=== PATIENT | male | born 1965 | race Caucasian/White ===

== ENCOUNTER → 2019-02-05 14:39 | Outpatient (CLI) | payer OTHER, SELFPAY ==
--- NOTE | 2019-02-05 14:43 | RAD_ITS ---
STUDY: X-RAY - RIGHT ELBOW REASON FOR EXAM: Male, 53 years old. Possible foreign body. TECHNIQUE: 3 view(s) of the elbow. COMPARISON: None. FINDINGS: Normal visualized humerus, radius and ulna. Normal radiocapitellar and ulnotrochlear articulations. There is a fine linear metallic density in the anterior soft tissues on the radial aspect overlying the mid humerus RAD/Elbow min 3 Views IMPRESSION: Fine linear metallic density in the anterior radial aspect of the right arm overlying the midportion of the right humerus. Electronically Signed: Santos Downs, at 15:00 EDT , Service support ,
== END ==
PROVIDERS: Referring Provider Surgery; Visit Provider Surgery
DX: M79.5 Residual foreign body in soft tissue (principal)
CPT/HCPCS: 73080

== ENCOUNTER 2019-02-06 10:16 | Day surgery (SDC) | payer OTHER, SELFPAY ==
[2019-02-06 10:58] VITALS: BP 120/72; PULSE 50; RESP 14; TEMP 36.9; O2SAT 100; BMI 25.4
--- NOTE | 2019-02-06 11:29 | PCM.HP.BLA ---
History and Physical Date of Admission: 02/06/19 [facility] [address] [place], [place] [address] OFFICE VISIT Date of Service: 02/05/19 MR#: [id number] Acct: [id number] Name: WINIFRED HENRIQUEZ Rep #: [id number] : 1965 Provider: Jeremie Yeager MD Age/Sex: 53/M Location: [facility] Status: Signed Intake Vital Signs 02/05/19 Height 5 ft 11 in 02/05/19 Weight: 176 lb 02/05/19 Body Mass Index (BMI) 24.5 02/05/19 Blood Pressure 121/71 H 02/05/19 Blood Pressure Location Rt brachial 02/05/19 Blood Pressure Position Sitting 02/05/19 Respiratory Rate 16 02/05/19 Pulse Rate 60 02/05/19 Pulse Source Monitor 02/05/19 Temperature 97.9 F 02/05/19 Temperature Source Oral 02/05/19 Pulse Ox 96 02/05/19 Oxygen Delivery Method room air Intake Visit Reasons: FB arm--metal, xray prior to appt Physicist Astrophysics Required: No Is patient in pain?: No (Right upper arm tenderness) Allergies No Known Allergies Allergy (Verified 02/05/19 15:33) Medications NK 02/05/19 [History Confirmed 02/05/19] PFSH Medical History Foreign body entering through skin (Acute) Surgical History hx of arm exploration (Acute) Family History Mother Hypertension Brother Hypertension Father Hypertension Brother Hypertension Sister Hypertension Social History (Updated 02/05/19 @ 15:34 by Jeremie Yeager MD) Smoking Status: Never smoker second hand exposure: No alcohol intake: never substance use type: does not use caffeine: Yes what type of physical activity do you participate in: weight training frequency: 1-2 times per week seatbelt use: always HPI HPI HPI: WINIFRED HENRIQUEZ is a 53 M who presents to the office today for HPI HPI Surgical H&P: Yes HPI: WINIFRED PELLSHAW, is a 53 M who presents to the office today for Evaluation of a foreign body in his right arm. 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 He was seen by another physician who tried to remove this in the office however the patient is still is experiencing significant amounts of discomfort and he presented to me in the office today with an x-ray that shows a fine linear metallic density in the anterior radial aspect of the right arm overlying the midportion of the right humerus. ROS General General: No weight change, appetite, fatigue, colon cancer, breast cancer or weakness HEENT HEENT: No difficulty swallowing, eye injury, eye surgery, swollen glands or hoarseness Endo Endocrine: No thyroid disease, diabetes mellitus, thyroid cancer, Hair loss, heat intolerance or cold intolerance Skin Skin: No rash or changing moles Musc Musculoskeletal: No back problems, arthritis, rheumatoid arthritis, gout or joint pain Cardio Cardiovascular: No murmur, pacemaker, heart disease, atrial fibrillation, high blood pressure, heart attack, heart stent, palpitations, shortness of breat with exertion or chest pain Psych Psychiatric: No depression, anxiety or hearing voices Resp Respiratory: No shortness of breath, No sleep apnea, No cough, No COPD, No asthma, No emphysema, No wheezing Gastro Gastrointestinal: No abdominal pain, No nausea or vomiting, No diarrhea, No constipation, No blood in stool, No acid reflux, No hemorrhoids, No ulcers, No gallbladder problem, No black,tarry stools Rj Hematologic: No blood thinners, No blood disorders, No bleeding, No anemia, No blood clots Neuro Neurologic: No system reviewed and no additional complaints, except as docu, No as per HPI, No abnormal walking, No abnormal hearing, No abnormal movements, No abnormal speech, No behavioral changes, No burning sensations, No confusion, No seizure-like activity, No unsteadiness, No dizziness, No localized weakness, No frequent falls, No headache(s), No lack of coordination, No loss of vision, No memory loss, No numbness, No other visual disturbances, No radiating pain, No restless legs, No sensory deficit, No fainting, No tingling, No tremor(s), No weakness, No other Exam Const General: no acute distress, well developed, well hydrated Orientation: oriented to person, oriented to place, oriented to time [facility] Head: normocephalic, atraumatic Ears: external ears normal Mouth: moist mucous membranes Eyes Sclera: sclerae normal Pupils: normal by confrontation Neck Neck: no lymphadenopathy noted Neck mass: No Thyroid: thyroid normal, symmetrical Chest Chest palpation & inspection: normal inspection of the chest Resp Effort & Inspection: normal respiratory effort Auscultation: clear to auscultation bilaterally Percussion: percussion normal Cardio Rate: regular rate Rhythm: regular rhythm Heart Sounds: no murmurs GI Palpation: soft, no hepatosplenomegaly, no masses, nontender Rectal Exam: other Other: Rectal exam deferred. Extrem General: normal to inspection, no clubbing, cyanosis or edema Other: Palpation of the midportion of the anterior radial aspect of the right arm I cannot feel this lesion. I used my ultrasound machine and nothing shadowed and so I do not think that there is any way I can possibly do any procedures in the office to remove this Assessment & Plan Problems 1. Foreign body in right upper extremity, initial encounter S40.902P Plan My plan is to do an exploration under fluoroscopy of his right arm. Hopefully by using fluoroscopy we should be able to identify this. Risk benefits to include bleeding infection possible injury to underlying structures and/or nerves. Patient also understands there is a possibility In which I might not be able to find this foreign body. He understands the risk and he is willing to proceed. Orders Orders: Elbow min 3 Views Today M79.5 Coding Level of Care Code Off vis,new,level 3 Diagnoses Foreign body in right upper extremity, initial encounter S40.363P ??Encounter type: initial encounter 02/05/19 1534 <Electronically signed by Jeremie Yeager MD> Date Jeremie Yeager MD Cosigner Signature: Date (if applicable) CC: ~ I have re-examined the patient. There are no clinical changes since date of exam.
[2019-02-06] MEDS: Lactated Ringers 1,000 ML 100 ML IV (11:31)
[2019-02-06] MEDS: Cefazolin 2 GM in 0.9% Normal Saline 100 ML IV (12:22)
--- NOTE | 2019-02-06 12:27 | PCM.OPRPT ---
Problem List (1) Foreign body in right upper extremity Status: Acute Qualifiers: Encounter type: subsequent encounter Qualified Code(s): S40.851D - Superficial foreign body of right upper arm, subsequent encounter Report of Operation Date of Procedure: 02/06/19 Pre-Operative Diagnosis: Foreign body of right upper extremity Post-Operative Diagnosis: Same Surgery/Procedure Performed:: Removal of foreign body to right upper extremity Type of Anesthesia:: Local Estimated Blood Loss (mL): < 5 cc Description of Procedure: Patient was brought into the operating room. His right upper arm was sterilely prepped and draped in usual fashion. Fluoroscopy was used to get an approximate area of where the middle shard was located. I injected local. I made an incision. I dissected down deep into his biopsy and using fluoroscopy I was able to grasp the metal wire and remove it in its entirety from his biceps. Wound was irrigated 3-0 Vicryl deep dermal sutures were placed 2 interrupted sutures of 5-0 nylon were placed sterile dressings were applied and the patient tolerated the procedure well - Admit VTE Documentation VTE Present on Admission: No VTE Mechan Device Prophylaxis: SCD's VTE Pharm Prophylaxis ordered?: No Reason prophylaxis not ordered:: Treatment Not Indicated
--- NOTE | 2019-02-06 12:29 | DCINST_ITS ---
Discharge Diet: Light diet - advance as tolerated - If you have questions about your diet instructions, please talk to your doctor. Discharge Activity: May Drive May shower in (days): 1 Lifting Restrictions: 10 pounds Call your doctor if your incision/area has: Continuous Slow Oozing, Sudden Increased Bleeding, Increased Pain/ Swelling, Increased Redness, Foul Smelling Discharge Call your doctor if you observe: Fever of 101 or Higher Suture Line Care: Avoid Pulling/Pushing, Avoid Pinching/Bending Additional Dressing/Incision Instructions:: Change or remove dressing in 4 days. Leave steri-strips in place for 1 week. Allergies/Adverse Reactions: Allergies No Known Allergies Allergy (Verified 02/06/19 10:57) Medications to take at Discharge NK 02/05/19 Primary Care Physician: Care Physician,No Primary [Primary Care Provider] - Test Results: Test results from this visit will be discussed in further detail at your follow- up appointment, if applicable. Please Follow Up With: Jeremie Yeager MD - [phone] When: Call to make an appointment to be seen in about 10 days.
--- NOTE | 2019-02-06 12:30 | FORE_PTH ---
PATIENT: WINIFRED HENRIQUEZ [place] [facility] [place]#:[id number] AGE/SX: 53/M ROOM: RE02/06/[address]: Dr. Jeremie Yeager MD : 1965 BED: DIS: 02/06/2019 SPEC #: [id number] RECD: 02/09/19 07:25 STATUS: JAMES JACKIE #: [id number] TOOTIE: 02/06/19 12:[address]: Jeremie Yeager DEPT: SURGICAL PATHOLOGY RECD BY: Francisco Espinal ENTERED: 02/09/19 08:47 SP TYPE: FOREIGN B MYRNA DR: No Primary Care Phys Tissues: FOREIGN BODY Procedures: Surgery Specimen Level I HEADER OPERATION: Removal, foreign body right upper arm PRE-OP DIAGNOSIS: Foreign body in right upper extremity, initial encounter S40.851A TISSUE SUBMITTED: Foreign body from right upper arm GROSS DIAGNOSIS A metallic wire for gross only. SJ:debora 02/09/19 GROSS DESCRIPTION Received in fixative is one container labeled with the patient's name and designated foreign body right upper arm. The specimen consists of a metallic wire with wavy appearance measuring 2.2 cm in length and <0.1 cm in diameter. The specimen is for gross identification only. / LYLY:debora 02/09/19 CPT: 29996
[2019-02-06 13:14] VITALS: BP 108/71; BP 120/72; PULSE 50; RESP 16; TEMP 36.7; O2SAT 100
== END 2019-02-06 13:17 | disposition home or self-care (01) ==
LOC: SDC 10:18 → AC 10:19
PROVIDERS: Referring Provider Surgery; Visit Provider Surgery
PROC: (CPT 24201; principal; 2019-02-06 12:15)
DX: S40.851A Superficial foreign body of right upper arm, initial encounter (principal); W45.8XXA Other foreign body or object entering through skin, initial encounter; W22.8XXA Striking against or struck by other objects, initial encounter; Y93.89 Activity, other specified; Y92.9 Unspecified place or not applicable; Y99.0 Civilian activity done for income or pay
CPT/HCPCS: 24201; 76000; 88300; J7120